=== PATIENT | female | born 1990 | race Caucasian/White ===

== ENCOUNTER → 2018-04-25 | Outpatient (CLI) | payer OTHER ==
[2015-01-18 11:36] VITALS: BMI 39.5
[~2018-04-25] MED LIST: DEXL30CA5 PO; DOCU-416 PO; IBUP-56 PO; IBUP800T37 PO; MULT-1335 PO; OMEP10CA40 PO; OMEP40CA48 PO; ONDA8TAB98 PO; PER PO; PREN1TAB44 PO
[2018-04-25 09:48] LABS: PLATELET COUNT, AUTOMATED 301 K/uL (150-450)
--- NOTE | 2018-04-25 13:13 | RADIOLOGY IMAGING REPORT ---
FACILITY: [facility] PATIENT NAME: Kourtney Lennon : 1990 MR: [id number] V: [id number] EXAM DATE: ORDERING PHYSICIAN: ELVIS DIAZ TECHNOLOGIST: Location: [facility] [place] Patient: Kourtney Lennon : 1990 Visit/Account:[id number] Date of Sevice: 04/25/2018 EXAMINATION: Limited abdomen ultrasound HISTORY: Right upper quadrant abdominal pain COMPARISON: Ultrasound the gallbladder 04/20/2015 FINDINGS: Pancreas: Pancreas head and body appear normal. The pancreas tail is obscured by bowel gas. Liver: Liver is mildly enlarged, with the right lobe measuring 17 cm length. The liver is diffusely hyperechoic with smooth margins. The main portal vein is patent by color Doppler ultrasound. Bile ducts: Intrahepatic and extrahepatic bile ducts are normal caliber. Common bile duct measures f our mm diameter in the alan hepatis. Gallbladder: Normal size gallbladder is partially filled with dependent, mobile sludge. No gallston es or gallbladder wall thickening is observed. Sonographic Oseguera sign is positive. Right Kidney: Normal size with preserved parenchymal thickness and appropriate echogenicity. Right k idney measures 11 cm length. There is no hydronephrosis. Abdominal aorta and IVC: Abdominal aorta and IVC are normal caliber. Both are patent. Ascites: None IMPRESSION: 1. Hepatic steatosis and mild hepatomegaly. 2. Gallbladder partially filled with sludge correlates to the area of patient discomfort. There are no ultrasound findings concerning for cholecystitis or biliary obstruction, however. Report Dictated By: Angela Campos MD at 04/25/2018 12:16 PM Report E-Signed By: Angela Campos MD at 04/25/2018 12:43 PM WSN:[email or web address]
== END ==
LOC: LAB 09:35
PROVIDERS: ATTEND Surgery
DX: K76.0 Fatty (change of) liver, not elsewhere classified (principal); R16.0 Hepatomegaly, not elsewhere classified
CPT/HCPCS: 36415; 76705; 82040; 82247; 82248; 82310; 82374; 82435; 82565; 82947; 83690; 84075; 84132; 84155; 84295; 84443; 84450; 84460; 84520; 85025

== ENCOUNTER → 2018-05-05 | Outpatient (CLI) | payer OTHER ==
[2015-01-18 11:36] VITALS: BMI 39.5
[~2018-05-05] MED LIST changes: +CLON0.5T66 PO; +OMEP-125 PO; +SERT-181 PO
== END ==
LOC: LAB 08:47
PROVIDERS: ATTEND Internal Medicine
DX: R94.5 Abnormal results of liver function studies (principal)
CPT/HCPCS: 36415; 82040; 82247; 82310; 82374; 82435; 82565; 82947; 84075; 84132; 84155; 84295; 84450; 84460; 84520

== ENCOUNTER → 2018-05-07 | Outpatient (CLI) | payer OTHER ==
[2015-01-18 11:36] VITALS: BMI 39.5
[~2018-05-07] MED LIST changes: +SINCALIDE 5 MCG VIAL INJ ONE; +WATER FOR INJ,STERILE 20 ML 20 ML ONE
--- NOTE | 2018-05-07 14:43 | RADIOLOGY IMAGING REPORT ---
FACILITY: [facility] [place] PATIENT NAME: Kourtney Lennon : 1990 MR: [id number] V: [id number] EXAM DATE: ORDERING PHYSICIAN: PETER FARMER TECHNOLOGIST: Location: [facility] [place] Patient: Kourtney Lennon : 1990 Visit/Account:[id number] Date of Sevice: 05/07/2018 HIDA W/CCK HISTORY: RUQ pain TECHNIQUE: 6.0 mCi Tc99m Hepatolite was injected intravenously. Multiple sequential gamma camera susana ges of the abdomen were obtained for 36 minutes. At that time, Kinevac was injected intravenously and an additional 30 minutes of gamma camera imaging data was acquired. A computer-generated region of i nterest was placed around the gallbladder and time-activity curve for the gallbladder was derived. Th e gallbladder ejection fraction was calculated. COMPARISON: The bladder ultrasound April 25, 2018 FINDINGS: Liver uptake and excretion: Unremarkable. Time to appearance: Bile ducts: 5 minutes. Gallbladder: 5 minutes. Duodenum: 7 minutes. Duodenal-gastric reflux / extravasation: None. Post IV Kinevac: Normal and prompt contraction of the gallbladder. Patient symptoms: None reported Ejection fraction = 96% (normal range >35%). IMPRESSION: Gallbladder ejection fraction 96% Report Dictated By: Kim Aguirre MD at 05/07/2018 2:36 PM Report E-Signed By: Kim Aguirre MD at 05/07/2018 2:39 PM WSN:[email or web address]
== END ==
LOC: NUC 00:43
PROVIDERS: ATTEND Internal Medicine
DX: R10.11 Right upper quadrant pain (principal)
CPT/HCPCS: 78226; A9537; J2805